=== PATIENT | female | born 1980 | race Hispanic/Latino ===

== ENCOUNTER 2025-04-25 14:47 | Emergency (ER) | payer SELFPAY ==
[2025-04-25 14:53] VITALS: BP 141/96
--- NOTE | 2025-04-25 15:58 | ED.GENMED ---
History of Present Illness
General
Chief Complaint: Abdominal Pain
Time Seen by Provider: 04/25/25 15:36
History of Present Illness
History of Present Illness:
Debra is a 45-year-old [place]-speaking female who denies any medical history presenting to the ER today complaining of vaginal and pelvic pain for 2 weeks. Reports that she has been experiencing sharp cramping-like sensations in her pelvis that
radiate down into her vagina. Denies any changes to her vaginal discharge. Normal menstrual cycle ended 15 days ago. Denies any abdominal pain, fevers, chills, nausea, vomiting. 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
Phy Exam
General Physical Exam
General Presentation: well appearing and no apparent distress
General Skin: warm and dry
General Habitus: normal
General Mental: alert
General Hydration: appears well hydrated
ENT Exam
ENT Exam: EOMI, pharynx normal, neck supple and normocephalic
Eye Exam
Eye Exam: PERRL, cornea clear and conjunctiva normal
Cardiovascular Exam
Cardiovascular Exam: regular rate/rhythm, no edema, no murmur and normal peripheral pulses
Pulmonary Exam
Pulmonary Exam: lungs clear, no respiratory distress, no rales, no crackles, no rhonchi, no stridor, no wheezing and no cough
Gastrointestinal Exam
Gastrointestinal Exam: normal bowel sounds, non tender, soft, no organomegaly, no pulsatile mass and non distended
Neurological Exam
Neurological Exam: alert, oriented x3, no motor deficits and speech normal
Musculoskeletal Exam
Musculoskeletal Exam: full ROM and no edema
Skin Exam
Skin Exam: normal color, warm/dry, no rash and no petechia
Psychiatric Exam
Psychiatric Exam: normal mood/affect
Course
Orders/Labs/Results
Orders:
Orders
04/25/25 15:59
US Pelvis W Transvag Combined Urgent
Comment:
Reason For Exam: pelvic pain
04/25/25 16:08
Test Result ONCE
04/25/25 16:12
Test Result ONCE
04/25/25 16:29
BMP [Basic Metabolic Panel] Routine
CBC/With Diff [Complete Blood Count/With Diff] Routine
HCG, Serum Qualitative Screen Urgent
04/25/25 17:40
Urinalysis Reflex To Culture Urgent
Date Specimen was Collected: 04/25/25
Time Specimen was Collected: 17:15
Urine Microscopic Reflex Cult Urgent
Urine Culture Urgent
MAGDALENA Source: U
Specimen Description:
Date Specimen was Collected: 04/25/25
Time Specimen was Collected: 17:15
04/25/25 18:12
Acetaminophen [Tylenol] 650 mg PO NOW STA
Abnormal Lab Results
04/25/25 04/25/25
16:29 17:40
RBC 4.18 L 10^6/uL
(4.20-5.40)
Hgb 8.9 L g/dL
(12.0-16.0)
Hct 28.7 L %
(37.0-47.0)
MCV 68.7 L fL
(81.0-99.0)
MCH 21.3 L pg
(27.0-31.0)
MCHC 31.0 L g/dL
(33.0-37.0)
RDW 17.2 H %
(11.5-14.5)
Plt Count 405 H 10^3/uL
(130-400)
Absolute Monos (auto) 0.9 H 10^3/uL
(0.1-0.6)
Eosinophils % 6.5 H %
(0-6)
Creatinine 0.5 L mg/dL
(0.6-1.0)
Ur Occult Blood Reflex 1+ A
(Negative)
Leukocyte Esterase Rfl 3+ A
(Negative)
Urine Albumin (Reflex) 1+ A
(Neg - Trace)
04/25/25 16:29
04/25/25 16:29
Vital Signs
Initial and Last Documented VS:
Initial Vital Signs
Temp Pulse Resp BP Pulse Ox
36.8 C 102 20 141/96 100
04/25/25 14:53 04/25/25 14:53 04/25/25 14:53 04/25/25 14:53 04/25/25 14:53
Last Documented Vital Signs
Temp Pulse Resp BP Pulse Ox
36.8 C 102 16 141/96 100
04/25/25 14:53 04/25/25 14:53 04/25/25 16:49 04/25/25 14:53 04/25/25 16:01
MDM/Problems Addressed
Differential Diagnosis Includes:
CBC and BMP ordered and reviewed. Hemoglobin 8.9. Likely anemic due to recent menstrual cycle. BMP unremarkable. UA negative for any obvious infection. Pelvic ultrasound obtained that shows hemorrhagic cyst. This is likely the cause of patient's
pain. Discussed pathology with patient. Supportive measures including Tylenol and ibuprofen. She should follow-up with her school age program associate within 2 weeks if pain persist. She remains nontoxic in appearance with normal vital signs. Stable for
discharge home. Tylenol given for pain in the ER.
*Pulse Oximetry
SaO2: 100
Oxygen Mode of Delivery: Room air
Patient hypoxic: no
*Critical Care Note
Total Time (30-74mins, 75-104mins- exclusive of procedures): Not Applicable
ED Attending Note
-
Portions of this chart may have been created with voice recognition software.� Occasional wrong word or��sound alike� substitutions may have occurred due to the inherent limitations of voice recognition software.
Discharge Plan
Departure
Patient Disposition: Home (Routine Discharge)
Date of Disposition: 04/25/25
Time of Disposition: 18:09
Patient with high blood pressure during this ER visit?: No
Discharge Problem:
Ovarian cyst, Pelvic pain
Instructions: Ovarian cyst - ED (DC)
Referrals:
UNKNOWN - PT DOES,NOT KNOW [Family Provider]
Activity Restrictions/Additional Instructions:
Follow-up with your school age program associate regarding this finding. You may take Tylenol Motrin for pain.
Interventions
Interventions:
*Risk Screen - Suicide Last Done: 04/25/25 16:32
*General Assessment Last Done: 04/25/25 14:53
*Neglect/Abuse Screening Last Done: 04/25/25 14:53
*ED Influenza Vaccine History Last Done: 04/25/25 14:53
[facility] Fall Risk Assessment Tool Last Done: 04/25/25 16:50
[facility]-Lcgievzmwp Assessment Last Done: 04/25/25 16:32
Discharge Date and Time
Print Language: SURINAMESE
[2025-04-25 16:40] LABS: Hematocrit 28.7 % (37.0-47.0); Hemoglobin 8.9 g/dL (12.0-16.0); Mean Corp Hgb Conc. 31.0 g/dL (33.0-37.0); Mean Corpuscular Volume 68.7 fL (81.0-99.0); Nucleated Red Blood Cells % 0 %; Platelet Count 405 10^3/uL (130-400); Red Cell Dist. Width 17.2 % (11.5-14.5)
[2025-04-25 16:47] LABS: HCG, Serum Qualitative Screen Negative
[2025-04-25 16:57] LABS: Blood Urea Nitrogen 10 mg/dl (7-17); Calcium 9.0 mg/dl (8.4-10.2); Carbon Dioxide 26 mmol/L (22-30); Chloride 105 mmol/L (98-107); Glucose 97 mg/dl (70-99); Potassium 3.9 mmol/L (3.5-5.1); Sodium 135 mmol/L (135-145); eGFR > 60.00
[2025-04-25 17:51] LABS: Urine Character Slightly Cloudy (Clear)
[2025-04-25] MEDS: TYLENOL 650 MG PO (18:18)
[2025-04-25 18:19] VITALS: BP 132/69
[2025-04-25 18:56] LABS: Urine Squamous Cell >30 /LPF (Few); Urine White Cell 50-60 /HPF (0-5)
== END 2025-04-25 18:21 | disposition home or self-care (01) ==
LOC: EMR 14:47
PROVIDERS: Surgery Trauma Surgery; EMERGENCY PHYSICIAN Student in an Organized Health Care Education/Training Program
DX: N83.292 Other ovarian cyst, left side (principal); R10.20 Pelvic and perineal pain unspecified side
CPT/HCPCS: 99284; 76830; 76856; 80048; 81003; 81015; 84703; 85025; 87077; 87086; 87147